=== PATIENT | female | born 1980 | race Caucasian/White ===

== ENCOUNTER 2018-02-23 16:05 | Emergency (ER) | payer SELFPAY ==
[2018-02-23 17:20] LABS: ALT (SGPT) 18 U/L (8-55); AST (SGOT) 22 U/L (5-34); Albumin 4.6 g/dL (3.5-5.0); Alkaline Phosphatase 61 U/L (40-150); Anion Gap 12 mmol/L (10-20); BUN (Urea Nitrogen) 17 mg/dL (7.0-18.7); Bilirubin, Total 0.5 mg/dL (0.2-1.2); Calc. Creatinine Clearance 0 mL/min (70-130); Calcium 10.1 mg/dL (7.8-10.44); Carbon Dioxide 25 mmol/L (22-29); Chloride 103 mmol/L (98-107); Estimated GFR-MDRD Greater than 90; Globulin 3.4 g/dL (2.4-3.5); Glucose 94 mg/dL (70-105); Potassium 4.1 mmol/L (3.5-5.1); Sodium 136 mmol/L (136-145)
[2018-02-23 17:43] LABS: BHCG - Serum Negative (NEGATIVE); Pregs Control Background? CLEAR/WHITE (CLR/WHITE); Pregs Control Bar Appear? YES (CONTROL BAR)
[2018-02-23 17:46] LABS: #Basophils 0.1 thou/uL (0.0-0.2); #Eosinphils 0.1 thou/uL (0.0-0.7); #Lymphocytes 1.7 thou/uL (1.20-3.40); #Monocytes 0.6 thou/uL (0.11-0.59); #Neutrophils 4.8 thou/uL (1.40-6.50); %Basophils 0.7 % (0.0-1.0); %Lymphocytes 23.7 % (21.0-51.0); %Monocytes 8.3 % (0.0-10.0); %Neutrophils 66.3 % (42.0-75.0); Hemoglobin 14.1 g/dL (12.0-16.0); Mean Corpuscular HGB CONC 33.3 g/dL (32.0-36.0); Mean Corpuscular Hemoglobin 29.6 pg (27.0-31.0); Mean Corpuscular Volume 88.8 fL (78.0-98.0); Mean Platelet Volume 8.1 fL (7.4-10.4); Platelet Count 269 thou/uL (130-400); RBC Distribution Width 11.8 % (11.5-14.5); Red Blood Cell (RBC) Count 4.77 mill/uL (4.20-5.40); White Blood Cell (WBC) Count 7.3 thou/uL (4.8-10.8)
[2018-02-23] MEDS ORDERED: diphenhydrAMINE 50 MG/ML VIAL ONE (17:59)
[2018-02-23] MEDS ORDERED: Ketorolac Tromethamine 30 MG/ML VIAL ONE (17:59)
[2018-02-23] MEDS ORDERED: Metoclopramide HCl 10 MG/2 ML VIAL ONE (17:59)
== END 2018-02-23 19:45 | disposition home or self-care (01) ==
LOC: ERS 16:05
DX: G43.909 Migraine, unspecified, not intractable, without status migrainosus (principal); Z79.899 Other long term (current) drug therapy
CPT/HCPCS: 36415; 80053; 84703; 85025; 96365; 96375; J1200; J1885; J2765

== ENCOUNTER 2018-11-07 15:25 | Emergency (ER) | payer SELFPAY ==
[2018-11-07 17:15] LABS: #Eosinphils 0.2 thou/uL (0.0-0.7); #Lymphocytes 1.6 thou/uL (1.20-3.40); #Monocytes 0.4 thou/uL (0.11-0.59); #Neutrophils 3.7 thou/uL (1.40-6.50); %Basophils 0.6 % (0.0-1.0); %Lymphocytes 25.8 % (21.0-51.0); %Monocytes 7.2 % (0.0-10.0); %Neutrophils 62.4 % (42.0-75.0); Hemoglobin 13.3 g/dL (12.0-16.0); Mean Corpuscular HGB CONC 31.8 g/dL (32.0-36.0); Mean Corpuscular Hemoglobin 28.3 pg (27.0-31.0); Mean Corpuscular Volume 88.9 fL (78.0-98.0); Mean Platelet Volume 8.7 fL (7.4-10.4); Platelet Count 317 thou/uL (130-400); RBC Distribution Width 11.7 % (11.5-14.5); Red Blood Cell (RBC) Count 4.72 mill/uL (4.20-5.40)
[2018-11-07] MEDS ORDERED: Ondansetron ODT 4 MG TAB ONE (17:19)
[2018-11-07 17:36] LABS: ALT (SGPT) 16 U/L (8-55); AST (SGOT) 19 U/L (5-34); Albumin 4.4 g/dL (3.5-5.0); Alkaline Phosphatase 72 U/L (40-150); Anion Gap 14 mmol/L (10-20); BUN (Urea Nitrogen) 10 mg/dL (7.0-18.7); Bilirubin, Total 0.4 mg/dL (0.2-1.2); Calc. Creatinine Clearance 0 mL/min (70-130); Calcium 9.6 mg/dL (7.8-10.44); Carbon Dioxide 23 mmol/L (22-29); Chloride 103 mmol/L (98-107); Estimated GFR-MDRD 90; Globulin 3.2 g/dL (2.4-3.5); Glucose 94 mg/dL (70-105); Lipase 17 U/L (8-78); Potassium 3.8 mmol/L (3.5-5.1); Protein, Total 7.6 g/dL (6.0-8.3); Sodium 136 mmol/L (136-145)
[2018-11-07] MEDS ORDERED: Lidocaine Viscous Sol 2% 15 ml UD Cup ONE (17:38)
[2018-11-07] MEDS ORDERED: Mag-Al 1200 mg/1200 mg/30 ML UDCUP ONE (17:38)
[2018-11-07 17:45] LABS: Bilirubin Negative (Negative); Blood, Urine Negative (Negative); Clarity CLEAR (Clear); Glucose, Urine (Dipstick) Negative (Negative); Leukocyte Negative (Negative); Nitrite Negative (Negative); Protein, Urine (Dipstick) Negative (Neg-Trace); Specific Gravity, Urine 1.007 (1.002-1.036); Urobilinogen 0.2 mg/dL (0.2-1.0)
[2018-11-07 17:52] LABS: BHCG - Serum Negative (NEGATIVE); Pregs Control Background? CLEAR/WHITE (CLR/WHITE); Pregs Control Bar Appear? YES (CONTROL BAR)
--- NOTE | 2018-11-07 18:56 | ULT ---
RIGHT UPPER QUADRANT ULTRASOUND: 11/17/18 HISTORY: Right upper quadrant pain. Multiple longitudinal and transverse images of the right upper quadrant of the abdomen is obtained us ing multihertz curvilinear transducer. Real time and color flow images are obtained. The liver is unremarkable with no evidence of masses or lesions. No evidence of intrahepatic biliary dilatation is seen. The common bile duct is of normal size measur ing 1.9 mm. the gallbladder is unremarkable with no evidence of gallbladder wall thickening or eviden ce of pericholecystic fluid. The visualized portions of the pancreas is unremarkable. Normal hepatopedal flow seen in the portal system. The right kidney is unremarkable. Pole to pole measurement measuring 10.3 cm from pole to pole. IMPRESSION: Normal right upper quadrant ultrasound. POS: SUNSHINE
== END 2018-11-07 19:14 | disposition home or self-care (01) ==
LOC: ERS 15:25
DX: R10.13 Epigastric pain (principal); Z79.899 Other long term (current) drug therapy
CPT/HCPCS: 36415; 76705; 80053; 81003; 83690; 84703; 85025; Q0162

== ENCOUNTER 2020-07-21 15:09 | Emergency (ER) | payer SELFPAY ==
[2020-07-21 17:44] LABS: Bilirubin Negative (Negative); Blood, Urine Negative (Negative); Clarity Clear (Clear); Glucose, Urine (Dipstick) Normal (Negative); Ketone, Urine 40 mg/dL (Negative); Leukocyte Negative Leu/uL (Negative); Mucous/LPF 1+ LPF (<2+); Nitrite Negative (Negative); Protein, Urine (Dipstick) 30 mg/dL (Neg-Trace); RBC/HPF 0-3 HPF (0-3); Specific Gravity, Urine 1.029 (1.002-1.036); Squamous Epithelial 0-3 HPF (0-3); Urobilinogen Normal mg/dL (Less than 2); WBC/HPF 0-3 HPF (0-3)
[2020-07-21 17:47] LABS: Bacteria/HPF 1+ HPF (None Seen)
[2020-07-21] MEDS ORDERED: Ketorolac Tromethamine 30 MG/ML VIAL ONE (18:01)
== END 2020-07-21 18:43 | disposition home or self-care (01) ==
LOC: ERS 15:09
DX: N80.9 Endometriosis, unspecified (principal); M06.9 Rheumatoid arthritis, unspecified; Z79.899 Other long term (current) drug therapy
CPT/HCPCS: 81003; 81015; 96372; 99284; J1885

== ENCOUNTER 2021-06-30 03:14 | Emergency (ER) | payer SELFPAY ==
[2021-06-30] MEDS ORDERED: Ondansetron PF 4 MG/2 ML Vial ONE (03:44)
[2021-06-30] MEDS ORDERED: Ketorolac Tromethamine 30 MG/ML VIAL ONE (03:44)
[2021-06-30 03:47] LABS: Bilirubin Negative (Negative); Blood, Urine 1+ (Negative); Clarity Clear (Clear); Glucose, Urine (Dipstick) 30 mg/dL (Negative); Ketone, Urine Greater than 150 mg/dL (Negative); Leukocyte 250 Leu/uL (Negative); Nitrite Negative (Negative); Protein, Urine (Dipstick) 100 mg/dL (Neg-Trace); RBC/HPF 0-3 HPF (0-3); Specific Gravity, Urine 1.026 (1.002-1.036); Urobilinogen Normal mg/dL (Less than 2)
[2021-06-30 03:54] LABS: Bacteria/HPF 1+ HPF (None Seen); Pregnancy Test - Urine (BHCG) Negative (Negative); Pregu Control Background? CLEAR/WHITE (CLR/WHITE); Pregu Control Bar Appear? YES (CONTROL BAR); Specific Gravity 1.026 (1.002-1.036)
[2021-06-30] MEDS ORDERED: Promethazine HCl 25 MG/ML VIAL ONE (04:09)
[2021-06-30 04:11] LABS: #Lymphocytes 0.7 thou/uL (1.20-3.40); #Monocytes 0.5 thou/uL (0.11-0.59); #Neutrophils 8.4 thou/uL (1.40-6.50); %Basophils 0.1 % (0.0-1.0); %Eosinophils 0.3 % (0.0-10.0); %Lymphocytes 7.1 % (21.0-51.0); %Monocytes 4.9 % (0.0-10.0); %Neutrophils 87.6 % (42.0-75.0); Hemoglobin 14.3 g/dL (12.0-16.0); Mean Corpuscular HGB CONC 34.9 g/dL (32.0-36.0); Mean Corpuscular Hemoglobin 30.8 pg (27.0-31.0); Mean Corpuscular Volume 88.1 fL (78.0-98.0); Mean Platelet Volume 9.8 fL (7.4-10.4); Platelet Count 278 thou/uL (130-400); RBC Distribution Width 11.4 % (11.5-14.5); Red Blood Cell (RBC) Count 4.65 mill/uL (4.20-5.40); White Blood Cell (WBC) Count 9.5 thou/uL (4.8-10.8)
[2021-06-30 04:33] LABS: ALT (SGPT) 14 U/L (8-55); AST (SGOT) 19 U/L (5-34); Alkaline Phosphatase 76 U/L (40-110); Anion Gap 18 mmol/L (10-20); BUN (Urea Nitrogen) 16 mg/dL (7.0-18.7); Bilirubin, Total 0.6 mg/dL (0.2-1.2); Calc. Creatinine Clearance 0 mL/min (70-130); Calcium 10.8 mg/dL (7.8-10.44); Carbon Dioxide 24 mmol/L (22-29); Chloride 101 mmol/L (98-107); Globulin 3.9 g/dL (2.4-3.5); Glucose 127 mg/dL (70-105); Lipase 15 U/L (8-78); Potassium 3.8 mmol/L (3.5-5.1); Protein, Total 8.9 g/dL (6.0-8.3); Sodium 139 mmol/L (136-145)
[2021-06-30] MEDS ORDERED: Haloperidol Lactate 5 MG/ML VIAL ONE ×2 (04:52)
[2021-06-30] MEDS ORDERED: Iopamidol-370 76% 500 ML 1 ML ONE (09:57)
== END 2021-06-30 07:15 | disposition home or self-care (01) ==
LOC: ERS 03:14
DX: R11.2 Nausea with vomiting, unspecified (principal); R10.30 Lower abdominal pain, unspecified
CPT/HCPCS: 36415; 74177; 76856; 80053; 81003; 81015; 81025; 83605; 83690; 85025; 87086; 93976; 96365; 96366; 96375; J1630; J1885; J2405; J2550; Q9967

== ENCOUNTER 2021-10-21 07:30 | Emergency (ER) | payer BC, SELFPAY ==
[2021-10-21] MEDS ORDERED: Ondansetron PF 4 MG/2 ML Vial ONE (07:47)
[2021-10-21] MEDS ORDERED: Morphine 4 MG/ML VIAL ONE (07:47)
[2021-10-21] MEDS ORDERED: Ketorolac Tromethamine 30 MG/ML VIAL ONE (07:47)
[2021-10-21 08:25] LABS: #Monocytes 0.5 thou/uL (0.11-0.59); #Neutrophils 9.8 thou/uL (1.40-6.50); %Basophils 0.1 % (0.0-1.0); %Eosinophils 0.1 % (0.0-10.0); %Lymphocytes 8.9 % (21.0-51.0); %Neutrophils 86.8 % (42.0-75.0); Hemoglobin 14.4 g/dL (12.0-16.0); Mean Corpuscular Hemoglobin 30.6 pg (27.0-31.0); Mean Corpuscular Volume 90.2 fL (78.0-98.0); Mean Platelet Volume 9.2 fL (7.4-10.4); Platelet Count 392 thou/uL (130-400); RBC Distribution Width 11.8 % (11.5-14.5); Red Blood Cell (RBC) Count 4.69 mill/uL (4.20-5.40); White Blood Cell (WBC) Count 11.2 thou/uL (4.8-10.8)
[2021-10-21 08:33] LABS: BHCG - Serum Negative (NEGATIVE); Pregs Control Background? CLEAR/WHITE (CLR/WHITE); Pregs Control Bar Appear? YES (CONTROL BAR)
[2021-10-21 09:28] LABS: Albumin 4.1 g/dL (3.5-5.0)
[2021-10-21 09:29] LABS: Chloride 105 mmol/L (98-107); Potassium 3.4 mmol/L (3.5-5.1); Sodium 136 mmol/L (136-145)
[2021-10-21 09:30] LABS: Calcium 9.3 mg/dL (7.8-10.44); Globulin 2.8 g/dL (2.4-3.5); Glucose 116 mg/dL (70-105); Protein, Total 6.9 g/dL (6.0-8.3)
[2021-10-21 09:32] LABS: Anion Gap 17 mmol/L (10-20); Bilirubin, Total 0.6 mg/dL (0.2-1.2); Carbon Dioxide 17 mmol/L (22-29)
[2021-10-21 09:33] LABS: Alkaline Phosphatase 53 U/L (40-110)
[2021-10-21 09:34] LABS: BUN (Urea Nitrogen) 9 mg/dL (7.0-18.7); Calc. Creatinine Clearance 0 mL/min (70-130)
[2021-10-21 09:35] LABS: AST (SGOT) 12 U/L (5-34)
[2021-10-21 09:36] LABS: ALT (SGPT) 9 U/L (8-55); Lipase 10 U/L (8-78)
[2021-10-21 10:56] LABS: Bacteria/HPF None Seen HPF (None Seen); Bilirubin Negative (Negative); Blood, Urine Negative (Negative); Clarity Clear (Clear); Glucose, Urine (Dipstick) Normal (Negative); Ketone, Urine Greater than 150 mg/dL (Negative); Leukocyte Negative Leu/uL (Negative); Nitrite Negative (Negative); Protein, Urine (Dipstick) 70 mg/dL (Neg-Trace); Specific Gravity, Urine Greater than 1.060 (1.002-1.036); Squamous Epithelial 0-3 HPF (0-3); Urobilinogen Normal mg/dL (Less than 2); WBC/HPF 0-3 HPF (0-3); pH, Urine 6.5 (5.0-9.0)
[2021-10-21 11:49] LABS: Lactic Acid 1.3 mmol/L (0.5-2.2)
== END 2021-10-21 11:55 | disposition home or self-care (01) ==
LOC: ERS 07:30
DX: R11.2 Nausea with vomiting, unspecified (principal); F12.90 Cannabis use, unspecified, uncomplicated; E86.0 Dehydration; Z79.899 Other long term (current) drug therapy
CPT/HCPCS: 36415; 74177; 80053; 81003; 81015; 83605; 83690; 84703; 85025; 96374; 96375; J1885; J2270; J2405

== ENCOUNTER 2021-10-22 09:44 | Emergency (ER) | payer BC | END 2021-10-22 12:50 | LOC: ERS 09:44 | DX: Z53.21 Procedure and treatment not carried out due to patient leaving prior to being seen by health care provider (principal) ==